=== PATIENT | male | born 1985 | race African-American/Black ===

== ENCOUNTER 2016-11-05 00:31 | Emergency (ER) | payer OTHER ==
[~2016-11-05] VITALS: Ht 190.5 cm; Wt 84.8 kg
[2016-11-05 00:42] VITALS: BP_SYST 135
[2016-11-05] MEDS ORDERED: QUET200T PO (00:51)
[2016-11-05] MEDS ORDERED: ALPR2TAB2 PO (00:51)
[2016-11-05] MEDS ORDERED: DEXAMETHASONE SOD PHOSPHATE 10 MG/ML VIAL IM ONE (01:15)
[2016-11-05] MEDS ORDERED: KETOROLAC TROMETHAMINE 60 MG/2 ML VIAL IM ONE (01:15)
[2016-11-05] MEDS ORDERED: AMOXICILLIN 500 MG CAPSULE PO ONE (01:15)
[2016-11-05 02:54] VITALS: BP_SYST 135
== END 2016-11-05 02:54 | disposition home or self-care (01) ==
LOC: SED 00:31
DX: J20.9 Acute bronchitis, unspecified (principal); M54.5 Low back pain; R03.0 Elevated blood-pressure reading, without diagnosis of hypertension; J45.909 Unspecified asthma, uncomplicated; F17.200 Nicotine dependence, unspecified, uncomplicated
CPT/HCPCS: 96372; 99284; J1100; J1885

== ENCOUNTER 2018-04-04 18:34 | Emergency (ER) | payer OTHER ==
[~2018-04-04] VITALS: Ht 195.6 cm; Wt 74.8 kg
[~2018-04-04 18:34] MED LIST: ALPR2TAB2 PO; QUET200T PO
[2018-04-04 18:38] VITALS: BP_SYST 126
[2018-04-04 21:43] LABS: BASOPHILS % (AUTO) 0.8 % (0.0-2.0); EOSINOPHILS # (AUTO) 0.1 K/uL (0.0-0.4); EOSINOPHILS % (AUTO) 1.1 % (0.0-4.0); HEMATOCRIT 40.2 % (36-54); HEMOGLOBIN 13.2 g/dL (14.0-18.0); LYMPHOCYTES # (AUTO) 2.4 K/uL (1.0-5.5); LYMPHOCYTES % (AUTO) 38.8 % (20.5-51.5); MEAN CORPUSCULAR HEMOGLOBIN 33 pg (27-31); MEAN CORPUSCULAR HGB CONC 33 % (32-36); MEAN CORPUSCULAR VOLUME 100 fL (79.0-98.0); MONOCYTES # (AUTO) 0.5 K/uL (0.0-1.0); MONOCYTES % (AUTO) 7.8 % (1.7-9.3); NEUTROPHILS # (AUTO) 3.1 K/uL (1.8-7.7); NEUTROPHILS % (AUTO) 51.5 % (40.0-70.0); PLATELET COUNT (AUTO) 115 K/uL (130-430); RED BLOOD CELL COUNT(AUTO) 4.03 MIL/uL (4.2-6.2); WHITE BLOOD COUNT (AUTO) 6.1 K/uL (4.8-10.8)
[2018-04-04 21:58] LABS: CALCIUM 8.8 mg/dL (8.4-11.0); CREATININE 1.03 mg/dL (0.55-1.30); POTASSIUM 3.9 mmol/L (3.5-5.1)
[2018-04-04 22:03] LABS: ALBUMIN 3.7 g/dL (3.4-4.8); TOTAL BILIRUBIN 0.5 mg/dL (0.0-1.0)
[2018-04-04] MEDS ORDERED: KETOROLAC TROMETHAMINE 30 MG VIAL IM ONE (22:30)
[2018-04-04] MEDS ORDERED: PROMETHAZINE 6.25 MG/ CODEINE 10 MG/ 5 ML PO ONE (22:45)
[2018-04-04 23:02] VITALS: BP_SYST 122
== END 2018-04-04 23:02 | disposition home or self-care (01) ==
LOC: SED 18:34
DX: M54.5 Low back pain (principal); F41.9 Anxiety disorder, unspecified; J45.909 Unspecified asthma, uncomplicated; R03.0 Elevated blood-pressure reading, without diagnosis of hypertension
CPT/HCPCS: 36415; 72100; 80053; 85025; 96372; 99285; J1885